=== PATIENT | male | born 1970 ===

== ENCOUNTER 2016-12-19 12:45 | Emergency (ER) | payer OTHER ==
[2016-12-19 13:08] VITALS: BP 132/80; PULSE 75; RESP 16; TEMP 98.7; O2SAT 97
--- NOTE | 2016-12-19 14:20 | ED PDOC ---
Lower Extremity Pain/Injury Time Seen by Provider: 12/19/16 13:30 Chief Complaint (Nursing): Lower Extremity Problem/Injury Chief Complaint (Provider): Right lower extremity pain History Per: Patient History/Exam Limitations: no limitations Onset/Duration Of Symptoms: Days (2) Current Symptoms Are (Timing): Still Present Severity: Moderate Additional History Per: Patient Additional Complaint(s): The patient is a 46yo male, presents to the ED for evaluation of left lower extremity pain since yesterday. The patient reports he was playing soccer yesterday and felt that he might have pulled his left hamstring muscle; additionally states he had leg cramps last night before going to bed. The pt states this morning while attempting to get in his car, he again experienced cramping in his left hamstring. Pt states he hasn't been able to range his left thigh due to pain. He denies any history of DVT, numbness, tingling, weakness, radiation of pain to his pelvis, groin or feet. Of note, pt admits he has history of muscle spasms which are relieved by use of Ibuprofen and a massage. Pt denies taking any medication for pain. At present, offers no additional medical complaints. Past Medical History Reviewed: Historical Data, Nursing Documentation, Vital Signs Vital Signs: Last Vital Signs Temp 98.7 F 12/19/16 13:05 Pulse 75 12/19/16 13:05 Resp 16 12/19/16 13:05 BP 132/80 12/19/16 13:05 Pulse Ox 97 12/19/16 13:05 - Medical History PMH: No Chronic Diseases Denies: Deep Vein Thrombosis - Surgical History Surgical History: No Surg Hx - Family History Family History: States: Unknown Family Hx - Living Arrangements Living Arrangements: With Family - Social History Current smoker - smoking cessation education provided: No Alcohol: None Drugs: Denies - Home Medications Home Medications: Ambulatory Orders Medication Instructions Recorded Cyclobenzaprine [Cyclobenzaprine 10 mg PO BID #14 tab 12/19/16 HCl] Naproxen [Naprosyn] 500 mg PO BID #30 tab 12/19/16 - Allergies Allergies/Adverse Reactions: Allergies Allergy/AdvReac Type Severity Reaction Status Date / Time No Known Allergies Allergy Verified 12/19/16 13:20 Review of Systems ROS Statement: Except As Marked, All Systems Reviewed And Found Negative Musculoskeletal: Positive for: Leg Pain (left hamstring pain/cramping). Negative for: Foot Pain Neurological: Negative for: Weakness, Numbness Physical Exam - Reviewed Nursing Documentation Reviewed: Yes Vital Signs Reviewed: Yes - Physical Exam Appears: Positive for: Well, Non-toxic, No Acute Distress Head Exam: Positive for: ATRAUMATIC, NORMAL INSPECTION, NORMOCEPHALIC Skin: Positive for: Normal Color Eye Exam: Positive for: Normal appearance Neck: Positive for: Normal Cardiovascular/Chest: Positive for: Regular Rate, Rhythm Respiratory: Positive for: Normal Breath Sounds. Negative for: Respiratory Distress Pulses-Dorsalis Pedis (L): 2+ Pulses-Dorsalis Pedis (R): 2+ Extremity: Positive for: Normal ROM (Full ROM below the knee, lot of stiffness with range of hamstring; able to plantar and dorsiflex without pain; ). Negative for: Pedal Edema, Calf Tenderness, Deformity, Swelling, Other (skin color changes) - ECG O2 Sat by Pulse Oximetry: 97 (RA) Pulse Ox Interpretation: Normal - CT Scan/US US Other Rad Studies (CT/US): Radiology Report Reviewed ((-) DVT) Medical Decision Making Medical Decision Making: Time: 1348 Impression: Low suspicion of blood clot, likely muscular pain Plan: -- Flexeril 10 mg PO -- Toradol 30 mg IM -- Reassess Time: 1518 Pt reports continued pain but states the pain is present in his left calf. Ordered duplex US to r/o DVT US negative for DVT. ptmuch improved in ED able to fuly stretch leg. advised muscle strain can last a couple of days to continue warm compress and stretching. d/c on flexril and naproxen. Scribe Attestation: Documented by Elsa Frances acting as a scribe for [facility] [place] Provider Attestation: All medical record entries made by the Scribe were at my direction and personally dictated by me. I have reviewed the chart and agree that the record accurately reflects my personal performance of the history, physical exam, medical decision making, and the department course for this patient. I have also personally directed, reviewed, and agree with the discharge instructions and disposition. Disposition - Clinical Impression Clinical Impression: Muscle cramp - Patient ED Disposition Is Patient to be Admitted: No Counseled Patient/Family Regarding: Studies Performed, Diagnosis, Need For Followup, Rx Given - Disposition Disposition: Routine/Home Disposition Time: 15:57 Condition: STABLE Prescriptions: Cyclobenzaprine [Cyclobenzaprine HCl] 10 mg PO BID #14 tab Naproxen [Naprosyn] 500 mg PO BID #30 tab Instructions: Muscle Strain (ED) Print Language: FAROESE
--- NOTE | 2016-12-19 15:51 | US ---
PROCEDURE: Right lower extremity venous duplex Doppler. HISTORY: calf pain unable to bear wght COMPARISON: None available. TECHNIQUE: Common femoral, superficial femoral, popliteal and posterior tibial veins were evaluated. Flow was assessed with color Doppler, compressibility, assessment of phasic flow and augmentation response. FINDINGS: COMMON FEMORAL VEIN: Unremarkable. SUPERFICIAL FEMORAL VEIN: Unremarkable. POPLITEAL VEIN: Unremarkable. POSTERIOR TIBIAL VEIN: Unremarkable. OTHER FINDINGS: None. IMPRESSION: No evidence of deep venous thrombosis in the right lower extremity.
== END 2016-12-19 16:23 | disposition home or self-care (01) ==
LOC: H.ER 12:45
DX: R25.2 Cramp and spasm (principal)